=== PATIENT | female | born 1995 | race Caucasian/White ===

== ENCOUNTER 2017-10-05 06:04 | Day surgery (SDC) | payer MEDICAID ==
[2017-10-02 13:52] LABS: HEMATOCRIT 41.6 % (36.0-48.0); HEMOGLOBIN 14.3 g/dL (12-16); LYMPHOCYTES 33.5 % (15-50); MCHC 34.4 g/dL (31.0-37.0); MCV 87.2 fL (80.0-100.0); MEAN PLATELET VOLUME 10.4 fL (7.4-10.4); NEUTROPHILS 57.8 % (40-80); PLATELET COUNT 230 10x3/uL (130-400); RBC 4.77 10x6/uL (4.00-5.40); RDW 12.9 % (11.5-14.5); WBC 5.1 10x3/uL (4.8-10.8)
[~2017-10-05] VITALS: Ht 160 cm; Wt 53.1 kg
[2017-10-05 08:25] VITALS: BP 104/65; Ht 160 cm; Wt 53.1 kg
[2017-10-05 08:53] LABS: HCG URINE NEGATIVE (NEGATIVE)
--- NOTE | 2017-10-20 08:12 | OP ---
PATIENT NAME: DOROTA ALEXANDRE MEDICAL RECORD: [id number] :89 LOCATION:[facility] ADMISSION DATE: SURGEON: ÁLVARO JOSE MD DATE OF OPERATION: 10/05/2017 DATE OF PROCEDURE: 10/05/2017 PREOPERATIVE DIAGNOSIS: Unwanted fertility. POSTOPERATIVE DIAGNOSIS: Unwanted fertility. PROCEDURE: Bilateral tubal occlusion using Falope rings. SURGEON: Álvaro Jose MD. KENNETH Hutchins. ANESTHESIOLOGIST: Dr. Lau. ANESTHETICS: General. FINDINGS: Uterus is unremarkable. Tubes and ovaries also unremarkable. SPECIMENS REMOVED: Not applicable. ESTIMATED BLOOD LOSS: Less than or equal to 50 cc. FLUID: 750 cc of lactated Ringer's. URINE OUTPUT: Quantity sufficient void prior to the procedure. COMPLICATION: None. DRAIN: None. INDICATIONS: The patient is a 22-year-old, multiparous female with unwanted fertility. The patient desires permanent sterilization. Risks and benefits have been described including the possibility of failure with an increased chance of ectopic gestation if was to occur. DESCRIPTION OF PROCEDURE: After informed consent was assured, the patient was taken to the operating room where anesthetic was obtained without difficulty. The patient was now prepped and draped in the usual sterile fashion. An incision was made at the umbilicus to accommodate a 5-mm bladeless trocar which was inserted without difficulty. The pneumoperitoneum has developed and accessory ports were placed 2 fingerbreadths above the symphysis after the patient has been placed in Trendelenburg position. The bowel swept free of the pelvis. The tubes were followed to the fimbriated end and a Falope ring applied at the isthmic portion of the left tube. Good crease formation was noted. This was repeated on the contralateral side. After Falope rings were applied, Marcaine was placed directly over both tubes. The accessory trocars were removed under direct visualization and pneumoperitoneum was released. The primary trocar was removed. The skin was reapproximated and sterile dressing applied. Sponge, lap and needle counts correct times 2. The patient was awake and went to the recovery area in stable condition. TRANSINT:[id number] Voice Confirmation ID: [id number] DOCUMENT ID: [id number] OPERATIVE REPORT [id number] BETTIEDOROTA ERICKSON ÁLVARO JOSE MD at 0812 CC: [id number] DICTATION DATE: 10/19/17 0722 DATA ASSISTANT: 10/19/1715 [facility] 10/05/17 [facility] [address] [place] [address]
== END 2017-10-05 15:30 | disposition home or self-care (01) ==
LOC: D.OPS 06:04 → D.PAN 08:30 → D.OPS 09:30
PROVIDERS: Obstetrics & Gynecology
DX: Z30.2 Encounter for sterilization (principal); Z30.9 Encounter for contraceptive management, unspecified